=== PATIENT | male | born 1985 | race Caucasian/White ===

== ENCOUNTER 2020-06-02 19:06 | Emergency (ER) | payer SELFPAY ==
[~2020-06-02] VITALS: Ht 185.4 cm; Wt 84.0 kg
[2020-06-02 19:20] VITALS: BP 128/86
[2020-06-02] MEDS ORDERED: IBUP600T16 PO (20:36)
[2020-06-02] MEDS ORDERED: HYDR-3068 PO (20:36)
[2020-06-03] MEDS ORDERED: HYDR-2765 PO (08:19)
== END 2020-06-02 20:41 | disposition home or self-care (01) ==
LOC: ER 19:06 → MERGE 19:06 → ER 20:41
DX: S62.324A Displaced fracture of shaft of fourth metacarpal bone, right hand, initial encounter for closed fracture (principal); S62.326A Displaced fracture of shaft of fifth metacarpal bone, right hand, initial encounter for closed fracture; F41.9 Anxiety disorder, unspecified; Z88.1 Allergy status to other antibiotic agents; W22.01XA Walked into wall, initial encounter; Y93.89 Activity, other specified; Y92.89 Other specified places as the place of occurrence of the external cause; Y99.8 Other external cause status
CPT/HCPCS: 29125; 73130; 99283